=== PATIENT | female | born 1980 | race Two or more races ===

== ENCOUNTER 2024-10-05 21:02 | Emergency (ER) | payer MEDICAID, SELFPAY ==
[2024-10-05 21:02] VITALS: BP 119/73; PULSE 79; RESP 18; TEMP 36.6; O2SAT 100
[2024-10-05 21:04] VITALS: BMI 26.5
--- NOTE | 2024-10-05 21:52 | PD.EDHA ---
ED Headache RME/HPI General Chief Complaint: General Adult/Misc Complain Stated Complaint: FEEL ILL, HEADACHE Time Seen by Provider: 10/05/24 21:51 Arrival date/time: 10/05/24 21:02 RME / HPI RME / HPI Narrative: This is a case of 43 year old female came in [facility] general weakness and increased sleeping Related Data Previous Rx's ?Medication ?Instructions ?Recorded aluminum-mag hydroxide-simethicone 10 ml PO TID PRN indigestion #355 08/26/22 200 mg-200 mg-20 mg/5 mL oral susp mL (Advanced Antacid-Antigas) Allergies Allergy/AdvReac Type Severity Reaction Status Date / Time diphenhydramine (From Allergy TREMORS Verified 10/05/24 21:03 Benadryl) Course Orders Category Date Time Status CT head/brain wo con Stat Exams 10/05/24 21:51 Ordered CBC Stat Lab 10/05/24 21:51 Ordered CMP [Comprehensive Metabolic Panel] Stat Lab 10/05/24 21:51 Ordered Vital Signs Vital signs: Vital Signs Temperature 98 F 10/05/24 21:02 Pulse Rate 79 10/05/24 21:02 Respiratory Rate 18 10/05/24 21:02 Blood Pressure 119/73 10/05/24 21:02 Pulse Oximetry (%) 100 10/05/24 21:02 Oxygen Delivery Method Room Air 10/05/24 21:02 Discharge Plan Prescriptions/Referrals Prescriptions/Med Rec: No Action alum-mag hydroxide-simeth [Advanced Antacid-Antigas] 200-200-20 mg/5 mL suspension 10 ml PO TID PRN (Reason: indigestion) Qty: 355 0RF Patient/Caregiver Discharge Instructions Print Language: Panamanian
--- NOTE | 2024-10-05 21:55 | EDRME_ITS ---
Rapid Medical Screening Exam RME Arrival date/time: 10/05/24 21:02 This is a case of 43 year old female came in [facility] general weakness and increased sleeping Chief Complaint: General Adult/Misc Complain Time Seen by Provider: 10/05/24 21:51 Vital signs: Vital Signs Temperature 98 F 10/05/24 21:02 Pulse Rate 79 10/05/24 21:02 Respiratory Rate 18 10/05/24 21:02 Blood Pressure 119/73 10/05/24 21:02 Pulse Oximetry (%) 100 10/05/24 21:02 Oxygen Delivery Method Room Air 10/05/24 21:02 E Narrative: This is a case of 43 year old female came in [facility] general weakness and increased sleeping
[2024-10-05 22:10] LABS: Basophils % (Auto) 0 % (0-2.5); Eosinophils % (Auto) 0 % (0-10); Hematocrit 25.3 % (36.0-46.0); Immature Granulocytes % (Auto) 0 % (0-0); Immature Granulocytes Auto 0.01 Thou/mm3 (0.00-0.00); Lymphocytes # (Auto) 1.7 Thou/mm3 (1.0-4.8); Lymphocytes % (Auto) 24 % (10-50); Mean Corpuscular HGB Conc 29.6 g/dl (31.0-37.0); Mean Corpuscular Hemoglobin 17.7 pg (25.0-35.0); Mean Corpuscular Volume 60 fL (80-100); Monocytes # (Auto) 0.6 Thou/mm3 (0.0-0.8); Monocytes % (Auto) 9 % (0-12); Neutrophils # (Auto) 4.6 Thou/mm3 (1.8-7.7); Neutrophils % (Auto) 66 % (37-80); Nucleated Red Blood Cell % 0 /100 WBC (0); Platelet Count 313 Thou/mm3 (140-440); RDW Standard Deviation 42.5 fL (36.4-46.3); Red Blood Count 4.23 Miln/mm3 (4.00-5.20)
[2024-10-05 22:25] LABS: Hemoglobin 7.5 g/dL (12.0-16.0)
[2024-10-05 22:28] LABS: Alanine Aminotransferase 10 U/L (10-49); Albumin, Serum 4.3 gm/dL (3.5-5.0); Albumin/Globulin Ratio 1.4 (1.2-2.2); Alkaline Phosphatase 40 U/L (46-116); Anion Gap 10 (7-16); Aspartate Amino Transferase 17 U/L (0-34); BUN/Creatinine Ratio 17 Ratio (12-20); Bilirubin,Total 0.7 mg/dL (0.3-1.2); Blood Urea Nitrogen 10 mg/dL (9-23); Carbon Dioxide 23.8 mMol/L (20.0-31.0); Chloride 104 mMol/L (98-107); Creatinine (Component) 0.6 mg/dL (0.6-1.3); Estimated Creatinine Clearance 114.3 mL/min (>60); Glucose 114 mg/dL (74-106); Osmolality,Calculated 275 (275-295); Potassium 3.7 mMol/L (3.4-5.1); Sodium 138 mMol/L (136-145); Total Protein 7.3 gm/dL (5.7-8.2); eGFR > 60 See Note
[2024-10-05] MEDS: LIDOCAINE VISCOUS 2% 15 ML UDC PO (23:23)
[2024-10-05] MEDS: FAMOTIDINE 20 MG TABLET 40 MG PO (23:23)
[2024-10-05] MEDS: MG HYD/AL HYD/SIME (Maalox Reg) SUSP 30 ML UDC PO (23:23)
[2024-10-05] MEDS: ONDANSETRON ODT 4 MG TABRAP PO (23:23)
[2024-10-06 00:13] VITALS: BP 115/57; PULSE 84; RESP 18; TEMP 36.8; O2SAT 100
[2024-10-06 00:47] VITALS: BP 115/57; PULSE 66; RESP 14; TEMP 37; O2SAT 99
[2024-10-06 01:04] LABS: Path Review Blood Smear Sent to Pathologist
[2024-10-06 02:23] VITALS: BP 114/80; PULSE 67; RESP 14; TEMP 37; O2SAT 99
== END 2024-10-06 02:25 | disposition left against medical advice (07) ==
LOC: SERX 22:07
PROVIDERS: Nurse Practitioner Family; Emergency Provider Emergency Medicine; PCP Physician Assistant
DX: R53.1 Weakness (principal); Z53.29 Procedure and treatment not carried out because of patient's decision for other reasons
CPT/HCPCS: 36415; 80053; 85025; 99281; J3490; Q0162; A9270

== ENCOUNTER 2024-11-22 08:33 | Outpatient (AMB) | payer MEDICAID, SELFPAY ==
--- NOTE | 2024-11-22 08:35 | GYNCLNT_ITS ---
Vital Signs 11/22/24 08:56 Height 1.6 m Height Method Stated Weight 68.209 kg Weight Measurement Method Standing Scale BMI 26.6 BP 118/74 Blood Pressure Source Automatic Cuff Blood Pressure Location Right Upper Arm Position Sitting Respiration 18 Pulse 78 Pulse Source Monitor Temp 98.3 F Temp Source Temporal Artery Scan Pulse Oximetry (%) 99 Oxygen Delivery Method Room Air Allergies/Home Meds Allergies & Medications Allergies diphenhydramine (From Benadryl) Allergy (Verified 11/22/24 10:56) TREMORS Intake Visit Data Collection New Patient or Established: Established Patient (seen at [facility] within 3 years) Reason for Visit:: HEAVY MENSTRUAL PERIODS Seen by Clinical Staff ONLY (RN/MA): No Commercial Loan Underwriter Required: Yes Commercial Loan Underwriter's name/title: HARESH WEBB MA Do You Feel Safe at Home: Yes Authorities Contacted: N/A PCP or OBGYN visit in last 3 months: Yes Date of Last PCP or OBGYN visit: 10/06/24 Hx Now: No Are you currently on any form of Control: No Last menstrual period: 11/01/24 Pain Present Currently: No Pain Scale Used: Storm-Cash/Numerical Pain scale:: 0 Smoking Status Smoking Status: Never smoker 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 Menstrual regularity: regular Flow: heavy Monthly: Yes How many days does period last: 6 Age at menarche: 14 Currently sexually active: Yes 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 1. Little interest or pleasure in doing things: several days 2. Feeling down, depressed, or hopeless: several days Total score: 2 PHQ-9 3. Trouble falling or staying asleep, or sleeping too much: Several days 4. Feeling tired or having little energy: Several days 5. Poor appetite or overeating: Not at all 6. Feeling bad about yourself - or that you are a failure or have let yourself or your family down: Several days 7. Trouble concentrating on things, such as reading the newspaper or watching television: Not at all 8. Moving or speaking so slowly that other people could have noticed? - Or the opposite - being so fidgety or restless that you have been moving around a lot more than usual: not at all 9. Thoughts that you would be better off or of hurting yourself in some way: Not at all Total score: 5.0 If you checked off any problems, how difficult have these problems made it for you to do your work, take care of things at home, or get along with other peo ple?: somewhat difficult Source: Developed by Drs. Pa Kilgore, Reanna Dunbar, Mark Bruno and colleagues, with an educational william from [employer]. Depression screen completed yes Social History Living Situation History Marital Status: Lives With: Family Housing: House Tobacco History Smoking Status: Never smoker Second Hand Smoke Exposure: No Alcohol History Alcohol Intake: Never Domestic Abuse History Do You Feel Safe at Home: Yes History of Present Illness HPI Narrative Ashlie Reese, a patient with a history of 5 C-sections, presents for ab normal uterine bleeding. She was last seen in 2022 and has not followed up since then. The patient initially presented with pelvic pain and irregular bleeding in 2020, following a in 2018. She was prescribed combination contraceptives and then high-dose progesterone by previous providers. An ultrasound at that time showed an enlarged uterus (9.2 cm) with diffuse echogenous heterogeneity consistent with adenomyosis, a 2.6 cm leiomyoma, and a 5 cm left ovarian cyst. The patient initially requested hysteroscopy and endometrial ablation but later changed her mind and wanted to proceed with a hysterectomy. However, she was lost to follow-up for 4 years. Currently, Ashlie reports heavy menstrual bleeding lasting 5 days, with the heaviest flow occurring on the first two days. Her menstrual cycle is 26 days long, and she denies any intermenstrual bleeding. She mentions receiving iron infusions in [place] for anemia, although her recent hemoglobin level was 12 g/dL, indicating no current anemia. The patient expresses concern about scar tissue from her previous C-sections, which she believes may be affecting her organs. Ashlie is interested in treatment options to reduce her menstrual flow and is considering the possibility of surgery in the winter months (March-April). She has not had any recent ultrasounds due to being on her period during a recent medical visit in [place]. Obstetric History: - GTPAL: G5 T5 L5 - history: - in 2019 - Four previous C-sections (years not specified) Medical History: - Adenomyosis - Uterine leiomyoma (fibroid) - Left ovarian cyst Surgical History: - in 2019 - 4 additional C-sections (5 total) - Cholecystectomy - Breast reduction surgery Medications and Supplements: - Combination contraceptives - High-dose progesterone - Iron treatments (received in [place]) ROS: Genitourinary: Positive for heavy menstrual bleeding lasting 5 days, negative for intermenstrual bleeding. Diagnostic Test Results and Labs: Ultrasound (2022): - Uterus size: 11.7 cm - Endometrial stripe: 13.5 mm - Left ovarian cyst: 2.9 cm simple cyst - Ovaries: Unremarkable - No free fluid visualized Ultrasound (2020): - Left ovarian cyst: 5 cm - Uterine fibroid noted Ultrasound (2022): - Uterus size: 9.2 cm - Diffuse echogenous heterogeneity consistent with adenomyosis - Leiomyoma: 2.6 cm - Left ovarian cyst: 5 cm Pap smear (After initial evaluation, year not specified): Normal Labs (After initial evaluation, year not specified): Normal testosterone- progesterone DHA Hemoglobin (date not specified): 12 g/dL Review of Systems Review of Systems Systems Reviewed: All systems reviewed, normal except as documented Exam General General Appearance: alert, in no apparent distress and healthy appearing Head Head exam: atraumatic Neck Neck exam: Present normal inspection and trachea midline Chest Chest inspection: Present normal inspection and symmetric chest wall rise External exam: Present normal external exam; Absent tenderness Neuro Neurological exam: Present oriented X3 Psych Psychiatric exam: Present normal affect and normal mood Office Procedures OB Clinic LOC & Office Proc's Nursing/Assessment Patient Status: Established Patient OB Clinic Nursing Assessment: Medication Reconciliation, Update PMH in EMR and Vital Signs OB Clinic Coordination of Care: Complex Care and Chronic Disease 1-5, Consent,records obtained, informed consent, Education Simp Pt/Fam, Lab and Imaging orders and Staff clarify orders Established Patient Charge Established Patient Point Assignment: 100 Established Patient Point Charge: EP Level 3 (80-115) Assessment & Plan Diagnosis / Problem List (1) Abnormal uterine and vaginal bleeding, unspecified: Status: Acute Plan Abnormal Uterine Bleeding Assessment: - Heavy menstrual bleeding lasting 5 days, occurring every 26 days - Previous ultrasounds showed enlarged uterus (11.7 cm in 2022) - Features consistent with adenomyosis - 2.6 cm leiomyoma noted in previous ultrasound, not visualized in most recent - Endometrial stripe 13.5 mm - History of 5 C-sections - Previous treatments: combination contraceptives and high-dose progesterone Plan: - Order pelvic ultrasound to reassess uterine size, fibroids, and endometrial thickness - Order blood tests to evaluate overall health status - Prescribe iron and folic acid supplement - Discuss treatment options based on ultrasound and blood test results - Consider medical management to reduce menstrual bleeding - Schedule follow-up appointment in one month to review results and discuss treatment plan - Patient prefers to consider surgical options (if needed) in March-April History of Ovarian Cysts Assessment: - Previous ultrasound showed 5 cm left ovarian cyst - Most recent ultrasound (2022) showed 2.9 cm simple left ovarian cyst - Both ovaries otherwise unremarkable Plan: - Reassess ovarian cysts with upcoming pelvic ultrasound - Discuss findings and management options at follow-up appointment Additional Plan Follow Up: 4 Weeks
[2024-11-22 08:56] VITALS: BP 118/74; PULSE 78; RESP 18; TEMP 36.8; O2SAT 99; BMI 26.6
== END 2024-11-22 09:17 | disposition home or self-care (01) ==
LOC: HODSOBC 08:33
PROVIDERS: PCP Physician Assistant; Referring Provider Physician Assistant; Supervising Provider Obstetrics & Gynecology; Visit Provider Obstetrics & Gynecology
DX: N93.9 Abnormal uterine and vaginal bleeding, unspecified (principal); Z87.42 Personal history of other diseases of the female genital tract; Z90.49 Acquired absence of other specified parts of digestive tract
CPT/HCPCS: 99213; G0463

== ENCOUNTER → 2024-12-08 | Outpatient (CLI) | payer MEDICAID, SELFPAY ==
--- NOTE | 2024-12-08 13:30 | XR_ITS ---
Examination: Transvaginal ultrasound of the pelvis, complete Technique: Transvaginal sonographic images pelvis performed using pardo scale imaging Exam date and time: December 08, 2024 1325 hours INDICATIONS: Irregular heavy menses for years FINDINGS: Uterus 10.3 cm anterior uterine area of fibroid degeneration 35 x 35 mm and posterior uterine body area of fibroid degeneration 15 x 15 mm Endometrial stripe 16mm Right ovary 2.9 cm arterial flow Left ovary 3.5 cm arterial flow 15 mm follicular cyst IMPRESSION: Uterine areas of fibroid degeneration, consider 6 month follow-up transvaginal pelvic sonography.
--- NOTE | 2024-12-08 13:30 | XR_ITS ---
Examination: Pelvic ultrasound, transabdominal, complete Technique: Transabdominal ultrasound of the pelvis performed using grayscale imaging Date and time of exam: December 08, 2024 at 1318 hours INDICATIONS: Irregular heavy menses beginning 4 years ago FINDINGS: Uterus 10.6 cm endometrial stripe 1.0 cm No uterine mass or intrauterine gestation Right ovary 2.0 cm arterial flow Left ovary 3.4 cm arterial flow 14 mm follicular cyst IMPRESSION: No uterine mass or intrauterine gestation, please see the transvaginal pelvic sonography report to follow
== END | disposition home or self-care (01) ==
LOC: CDIM 13:01
PROVIDERS: PCP Physician Assistant; Referring Provider Obstetrics & Gynecology; Visit Provider Obstetrics & Gynecology
DX: D25.9 Leiomyoma of uterus, unspecified (principal)
CPT/HCPCS: 76830; 76856

== ENCOUNTER 2024-12-21 10:43 | Outpatient (AMB) | payer MEDICAID, SELFPAY ==
[2024-12-21 11:18] VITALS: BP 123/79; PULSE 83; RESP 17; TEMP 37.1; O2SAT 98; BMI 26.8
--- NOTE | 2024-12-21 11:18 | GYNCLNT_ITS ---
Vital Signs 12/21/24 11:18 Height 1.6 m Height Method Measured Weight 68.663 kg Weight Measurement Method Standing Scale BMI 26.8 BP 123/79 Blood Pressure Source Automatic Cuff Blood Pressure Location Right Upper Arm Position Sitting Respiration 17 Pulse 83 Pulse Source Monitor Temp 98.8 F Temp Source Temporal Artery Scan Pulse Oximetry (%) 98 Oxygen Delivery Method Room Air Allergies/Home Meds Allergies & Medications Allergies diphenhydramine (From Benadryl) Allergy (Verified 01/21/25 12:44) TREMORS Medication Reconciliation vits no.126-ferrous fum 28 mg iron-folic acid 800 mcg tablet (Classic ) 1 tab PO QDAY 90 days #90 tabs 11/23/24 [Rx Confirmed 12/21/24] albuterol sulfate 90 mcg/actuation breath activated powder inhaler 2 inh inhalation Q4H PRN shortness of breath #1 ea 01/10/25 [Rx] lorazepam 0.5 mg tablet (Ativan) 0.5 mg PO BID PRN anxiety #20 tabs 01/21/25 [Rx] Intake Visit Data Collection New Patient or Established: Established Patient (seen at [facility] within 3 years) Reason for Visit:: F\U LAB RESULTS & ULTRASOUND Consent obtained for Telemed Visit: No Seen by Clinical Staff ONLY (RN/MA): No Delinquency Counselor Required: Yes Delinquency Counselor's name/title: ASTER JAVIER Do You Feel Safe at Home: Yes Authorities Contacted: N/A PCP or OBGYN visit in last 3 months: Yes Date of Last PCP or OBGYN visit: 11/22/24 Hx Now: No Are you currently on any form of Control: No Last menstrual period: 11/26/24 Pain Present Currently: No Pain Scale Used: Storm-Csah/Numerical Pain scale:: 0 Smoking Status Smoking Status: Never smoker 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 1. Little interest or pleasure in doing things: several days PHQ-9 8. Moving or speaking so slowly that other people could have noticed? - Or the opposite - being so fidgety or restless that you have been moving around a lot more than usual: not at all Source: Developed by Drs. Pa Kilgore, Reanna Dunbar, Mark Bruno and colleagues, with an educational william from [employer]. Social History Living Situation History Lives With: Family Housing: House Tobacco History Smoking Status: Never smoker Second Hand Smoke Exposure: No Alcohol History Alcohol Intake: Never Domestic Abuse History Do You Feel Safe at Home: Yes History of Present Illness HPI Narrative Patient reports taking vitamins, which she believes have helped alleviate her symptoms. She denies experiencing heavy periods at present. The patient's last Pap smear was performed 3 years ago at outside clinic and was rep orted as normal. She is approaching menopausal age but does not report any specific menopausal symptoms. She is a female patient with a history of 5 C-sections, presenting for follow-up of abnormally transmitted disease, uterine leiomyoma, and ovarian cyst. She was previously evaluated for abnormal uterine bleeding (AUB) and uterine leiomyoma. Her obstetric history includes GTPAL: G5 T5 L5, with a history of 5 C- sections. Medical history includes abnormally transmitted disease, leiomyoma of uterus, left ovarian cyst (previously 5 cm), and anemia (currently resolved). Surgical history includes 5 C-sections and D&E (Dilation and Evacuation). Currently taking vitamins as medication. Diagnostic Test Results and Labs: - Pelvic ultrasound (12/08/2024): Uterus 10.6 cm, endometrial stripe 1 cm. No uterine mass or intrauterine gestation. Right ovary 2 cm with arterial flow. Left ovary 3.4 cm with 14 mm follicular cyst. - Transvaginal ultrasound (date not specified): Fibroid degeneration 35 x 35 mm in posterior uterine body. Fibroid 15 x 15 mm in posterior uterine body. - Labs (11/24/2024): - A1c: 4.5 - LH: 5.1 - FSH: 3.0 - CMP: Within normal limits - Hemoglobin: 13.0 g/dL Exam General General Appearance: alert, in no apparent distress and healthy appearing Head Head exam: atraumatic Neck Neck exam: Present normal inspection and trachea midline Chest Chest inspection: Present normal inspection and symmetric chest wall rise External exam: Present normal external exam; Absent tenderness Neuro Neurological exam: Present oriented X3 Psych Psychiatric exam: Present normal affect and normal mood Assessment & Plan Diagnosis / Problem List (1) Abnormal uterine and vaginal bleeding, unspecified: Status: Acute (2) Intramural leiomyoma of uterus: Status: Acute (3) Left ovarian cyst: Status: Acute Plan Leiomyoma of uterus: - Transpaginal ultrasound revealed: ? Area of fibroid degeneration measuring 35 x 35 mm in posterior uterine body. ? 15 x 15 mm fibroid. - Leiomyoma appears to be shrinking and not growing. - Surgical intervention considered high risk due to history of 5 C-sections. Plan: - Continue conservative management due to high surgical risk. - Monitor fibroid size with follow-up ultrasounds. - Avoid surgery if possible due to history of multiple C-sections. - Follow up in 6 months. Abnormal uterine bleeding: - Recent hemoglobin level is 13.0. - Endometrial stripe measures 13.5 mm on ultrasound. - Patient reports taking vitamins, which she believes has helped with symptoms. Plan: - Continue vitamins as tolerated. - Monitor for recurrence of heavy periods. - Consider medical management if heavy bleeding recurs. - Avoid surgical intervention if possible due to history of multiple C-sections. Ovarian cyst: - Recent pelvic ultrasound (12/08/2024) shows: ? 14 mm follicular cyst on left ovary. ? Right ovary measures 2 cm with arterial flow. ? Left ovary measures 3.4 cm. Plan: - No specific intervention required for small follicular cyst. - Continue monitoring with future imaging studies.
== END 2024-12-21 11:32 | disposition home or self-care (01) ==
LOC: HODSOBC 10:43
PROVIDERS: Supervising Provider Obstetrics & Gynecology; Visit Provider Obstetrics & Gynecology
DX: D25.1 Intramural leiomyoma of uterus (principal); N83.202 Unspecified ovarian cyst, left side; N93.9 Abnormal uterine and vaginal bleeding, unspecified; Z88.8 Allergy status to other drugs, medicaments and biological substances
CPT/HCPCS: 99213; G0463

== ENCOUNTER 2024-12-30 08:18 | Emergency (ER) | payer MEDICAID, SELFPAY ==
--- NOTE | 2024-12-30 08:24 | EKG_ITS ---
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
[2024-12-30 08:26] VITALS: BP 114/75; PULSE 94; RESP 18; TEMP 37.1; O2SAT 99; BMI 26.5
--- NOTE | 2024-12-30 08:38 | XR_ITS ---
Examination: PA lateral chest 2 views TECHNIQUE: Upright PA lateral chest 2 views Date and time: December 30, 2024 0907 hours INDICATIONS: Chest pain left arm numbness beginning 4 days ago. FINDINGS: Normal heart size. Lungs are clear. The osseous structures are intact IMPRESSION: No active disease
--- NOTE | 2024-12-30 08:39 | PD.EDRME ---
Rapid Medical Screening Exam RME Arrival date/time: 12/30/24 08:18 44-year-old female presents stating she recently had endovenous ablation of lower extremities patient reports left arm pain, numbness and chest pressure Chief Complaint: Extremity Problem,Nontraumatic Vital signs: Vital Signs Temperature 98.7 F 12/30/24 08:26 Pulse Rate 94 12/30/24 08:26 Respiratory Rate 18 12/30/24 08:26 Blood Pressure 114/75 12/30/24 08:26 Pulse Oximetry (%) 99 12/30/24 08:26 Oxygen Delivery Method Room Air 12/30/24 08:26
[2024-12-30 09:44] LABS: Basophils # (Auto) 0.0 Thou/mm3 (0.0-0.2); Basophils % (Auto) 0 % (0-2.5); Eosinophils # (Auto) 0.0 Thou/mm3 (0.0-0.5); Eosinophils % (Auto) 0 % (0-10); Hematocrit 42.6 % (36.0-46.0); Hemoglobin 14.0 g/dL (12.0-16.0); Immature Granulocytes Auto 0.03 Thou/mm3 (0.00-0.00); Lymphocytes # (Auto) 1.4 Thou/mm3 (1.0-4.8); Lymphocytes % (Auto) 20 % (10-50); Mean Corpuscular HGB Conc 32.9 g/dl (31.0-37.0); Mean Corpuscular Hemoglobin 28.8 pg (25.0-35.0); Mean Corpuscular Volume 88 fL (80-100); Monocytes # (Auto) 0.4 Thou/mm3 (0.0-0.8); Monocytes % (Auto) 6 % (0-12); Neutrophils # (Auto) 5.3 Thou/mm3 (1.8-7.7); Neutrophils % (Auto) 74 % (37-80); Nucleated Red Blood Cell # 0.00 Thou/mm3 (0.00-0.00); Nucleated Red Blood Cell % 0 /100 WBC (0); Platelet Count 207 Thou/mm3 (140-440); RDW Standard Deviation 39.4 fL (36.4-46.3); Red Blood Count 4.86 Miln/mm3 (4.00-5.20); White Blood Count 7.2 Thou/mm3 (3.6-11.0)
[2024-12-30 10:04] LABS: Alanine Aminotransferase 16 U/L (10-49); Albumin, Serum 4.8 gm/dL (3.5-5.0); Albumin/Globulin Ratio 1.8 (1.2-2.2); Alkaline Phosphatase 48 U/L (46-116); Anion Gap 11 (7-16); Aspartate Amino Transferase 18 U/L (0-34); BUN/Creatinine Ratio 12 Ratio (12-20); Bilirubin,Total 1.0 mg/dL (0.3-1.2); Blood Urea Nitrogen 7 mg/dL (9-23); Calcium 10.0 mg/dL (8.3-10.6); Calcium (Corrected) 10.0 mg/dL (8.5-10.1); Carbon Dioxide 26.2 mMol/L (20.0-31.0); Chloride 104 mMol/L (98-107); Creatinine (Component) 0.6 mg/dL (0.6-1.3); Estimated Creatinine Clearance 113.1 mL/min (>60); Globulin 2.7 gm/dL (2.3-3.5); Glucose 106 mg/dL (74-106); Osmolality,Calculated 279 (275-295); Potassium 3.8 mMol/L (3.4-5.1); Sodium 141 mMol/L (136-145); Total Protein 7.5 gm/dL (5.7-8.2); Troponin I < 0.002 ng/mL (0.0-0.045); eGFR > 60 See Note
[2024-12-30 10:10] VITALS: BP 124/72; PULSE 77; RESP 14; O2SAT 100
[2024-12-30 10:12] LABS: HCG,Qualitative Serum Negative
[2024-12-30 10:21] LABS: D-Dimer < 250 ng/mL (<600)
--- NOTE | 2024-12-30 10:31 | XR_ITS ---
Examination: CT cervical spine without contrast 2-D sagittal reconstructions 2-D coronal reconstructions 3-D reconstructions. Exam date and time:December 30, 2024 1106 hours INDICATIONS: Neck pain radiating to the left arm beginning 4 days ago CTDI:vol (mGy) 13.3 DLP: (mGycm) 271 Technique: Multiple 2 mm axial sections of the cervical spine have been obtained. The coronal and sagittal reconstructions have been obtained. 3-D reconstructions have been obtained. Low dose protocols were performed. One or more of the following dose reduction techniques were used; automated exposure control, adjustment of the mA and/or KV according to patient size, use of iterative reconstruction technique. Findings: Axial sections demonstrate intact base of the skull. C1 exhibit satisfactory relationship to the odontoid. No acute cervical vertebral body fracture seen. Alignment posterior spinous processes satisfactory. Impression: No acute cervical fracture. If symptoms persist, consider MRI cervical spine without contrast follow-up
--- NOTE | 2024-12-30 10:39 | PD.EDADULT ---
ED General RME/HPI General Chief complaint: Extremity Problem,Nontraumatic Stated complaint: Left arm numbness, anxious Arrival date/time: 12/30/24 08:18 RME / HPI RME / HPI narrative: 12/30/24 08:18 44-year-old female presents stating she recently had endovenous ablation of lower extremities patient reports left arm pain, numbness and chest pressure DR. EDWARDS MAIN ED EVALUATION: 44-year-old female with past medical history of anxiety presents to the Emergency Department accompanied by her for evaluation of left upper extremity numbness and tingling that began Friday night. Symptoms involve primarily left arm and some fingers of the right hand. Patient notes that she had carried two chairs in that left arm earlier that day. She also reports chest pressure without chest pain and describes a heavy and tired sensation in the back of her neck for the past week. She denies shortness of breath, abdominal pain, nausea, vomiting, or diaphoresis. Related Data Previous Rx's ?Medication ?Instructions ?Recorded vits no.126-ferrous fum 1 tab PO QDAY 90 days #90 tabs 11/23/24 28 mg iron-folic acid 800 mcg tablet (Classic ) Allergies Allergy/AdvReac Type Severity Reaction Status Date / Time diphenhydramine (From Allergy TREMORS Verified 12/30/24 08:24 Benadryl) Review of Systems Review of Systems Systems Reviewed: All systems reviewed, normal except as documented Past Medical History Past Medical History GASTROINTESTINAL: Positive Gastrointestinal Disorders, Gall Bladder Disease and Gastroesophageal Reflux Disease REPRODUCTIVE: Positive Previous Pregnancies OTHER HISTORY: Positive Hospitalization and Chicken Pox Surgical History SURGICAL: Positive Section Social History SMOKING STATUS: Never smoker SECOND HAND EXPOSURE: No SUBSTANCE USE: does not use ED Exam Narrative Physical exam: Constitutional: Awake, alert, nontoxic, no acute distress HEENT: NC, AT, EOMI Neck: Supple CV: RRR, no m/r/g Lungs: CTAB, no w/r/r, no respiratory distress. Abd: Soft, NT, NT, no HSM noted to palpation Extremities: No deformities, no edema noted Neuro: AAOx3, CN 2-12 GIBL, no acute neuro deficit noted. FROM of all 4 extremities with symmetrical strength. 5/5. Skin: Warm, dry, intact Course Course Course Narrative: 1050: Reviewed available results which showed no acute abnormalities. Given the patient?s presentation with persistent neck pain and left upper extremity symptoms, also her paraesthesias, will proceed with CT of the neck for further evaluation. 1330H: Results of scan reviewed. No acute process. Patient vitally stable. Recent labs are generally unremarkable. Okay for discharge home. Advised on outpatient follow-up with PCP for further. Return precautions advised. Quality Measures none Orders Category Date Time Status EKG (ED ONLY) *Do not use* NOW Care 12/30/24 08:[address] cervical spine wo con Stat Exams 12/30/24 10:31 Completed EKG (ED Only) Stat Exams 12/30/24 08:24 Draft XR chest 2V Stat Exams 12/30/24 08:38 Completed CBC Stat Lab 12/30/24 09:15 Completed Comprehensive Metabolic Panel Stat Lab 12/30/24 09:15 Completed D-Dimer Stat Lab 12/30/24 09:15 Completed HCG,Qualitative Serum Stat Lab 12/30/24 09:15 Completed Troponin I Stat Lab 12/30/24 09:15 Completed Vital Signs Vital signs: Vital Signs Temperature 98.7 F 12/30/24 08:26 Pulse Rate 94 12/30/24 08:26 Respiratory Rate 18 12/30/24 08:26 Blood Pressure 114/75 12/30/24 08:26 Pulse Oximetry (%) 99 12/30/24 08:26 Oxygen Delivery Method Room Air 12/30/24 08:26 Discharge Plan Plan Patient Disposition: HOME (Self Care) Patient condition on transfer: Stable Prescriptions/Referrals Prescriptions/Med Rec: No Action Classic 28 mg iron- 800 mcg tablet 1 tab PO QDAY 90 Days Qty: 90 4RF Referrals: Sree Hdz PA-C [Primary Care Provider] - In 1 week Problem List Clinical Impression: Complaint of paresthesia Patient/Caregiver Discharge Instructions Education Materials: ED Paraesthesias Print Language: Greenlandic Stand Alone Forms: Karly Award Info., Patient Portal Info Letter MDM Narrative [facility] hospital course: Faustina Kang, am scribing for and in the presence of Dr. Edwards. Clinical Information Provided by patient and spouse Medical Records Reviewed [facility] Meds/Rx Considered, not Ordered None Labs/Rad/Tests considered, not Ordered None Chronic Illness/Social Conditions Add or document further as needed: anxiety EKG EKG Interpretation narrative: My interpretation: EKG performed at 0829 hours, sinus rhythm, rate 78, no STEMI Lab Interpretation Labs: see narrative above Imaging Radiology reports / interpretation(s): Procedure(s): XR chest 2V Accession Number(s): [id number] cc: Krista VEGAS),Sree WORTHINGTON; Sree Hdz PA-C; Inderjit Slaughter MD~ Examination: PA lateral chest 2 views TECHNIQUE: Upright PA lateral chest 2 views Date and time: December 30, 2024 0907 hours INDICATIONS: Chest pain left arm numbness beginning 4 days ago. FINDINGS: Normal heart size. Lungs are clear. The osseous structures are intact IMPRESSION: No active disease Dictated By: Inderjit Slaughter MD Procedure(s): CT cervical spine wo con Accession Number(s): [id number] cc: Sree Hdz PA-C; Inderjit Slaughter MD; Solange Edwards MD~ Examination: CT cervical spine without contrast 2-D sagittal reconstructions 2-D coronal reconstructions 3-D reconstructions. Exam date and time:December 30, 2024 1106 hours INDICATIONS: Neck pain radiating to the left arm beginning 4 days ago CTDI:vol (mGy) 13.3 DLP: (mGycm) 271 Technique: Multiple 2 mm axial sections of the cervical spine have been obtained. The coronal and sagittal reconstructions have been obtained. 3-D reconstructions have been obtained. Low dose protocols were performed. One or more of the following dose reduction techniques were used; automated exposure control, adjustment of the mA and/or KV according to patient size, use of iterative reconstruction technique. Findings: Axial sections demonstrate intact base of the skull. C1 exhibit satisfactory relationship to the odontoid. No acute cervical vertebral body fracture seen. Alignment posterior spinous processes satisfactory. Impression: No acute cervical fracture. If symptoms persist, consider MRI cervical spine without contrast follow-up Dictated By: Inderjit Slaughter MD Diagnosis Differential diagnosis: cervical radiculopathy, anxiety-related symptoms, acute coronary syndrome Most likely dx, and/or detailed dx discussion: ED paraesthesias Dispositon Disposition: Discharge Home
[2024-12-30 12:43] VITALS: BP 108/69; PULSE 77; RESP 15; TEMP 37.1; O2SAT 99
[2024-12-30 13:48] VITALS: BP 115/69; PULSE 66; RESP 18; TEMP 36.8; O2SAT 99
== END 2024-12-30 13:49 | disposition home or self-care (01) ==
PROVIDERS: Nurse Practitioner Primary Care; Emergency Provider Family Medicine; PCP Physician Assistant
DX: R20.2 Paresthesia of skin (principal); M79.602 Pain in left arm; R07.89 Other chest pain; M54.2 Cervicalgia
CPT/HCPCS: 36415; 71046; 72125; 80053; 84484; 84703; 85025; 85379; 93005; 99283

== ENCOUNTER 2025-01-10 00:24 | Emergency (ER) | payer MEDICAID, SELFPAY ==
[2025-01-10 00:25] VITALS: BMI 26.2
[2025-01-10 00:47] VITALS: BP 115/70; PULSE 86; RESP 24; TEMP 37; O2SAT 99
--- NOTE | 2025-01-10 00:51 | EKG_ITS ---
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
--- NOTE | 2025-01-10 00:51 | XR_ITS ---
Examination: PA chest single view TECHNIQUE: Upright PA chest single view Date and time: January 10, 2025, 0050 hours, comparison December 30, 2024 INDICATIONS: Onset shortness of breath today FINDINGS: Normal heart size. Lungs are clear. The osseous structures are intact. IMPRESSION: No active disease.
[2025-01-10 01:15] LABS: Basophils # (Auto) 0.0 Thou/mm3 (0.0-0.2); Basophils % (Auto) 0 % (0-2.5); Eosinophils # (Auto) 0.1 Thou/mm3 (0.0-0.5); Eosinophils % (Auto) 1 % (0-10); Hematocrit 40.1 % (36.0-46.0); Hemoglobin 13.3 g/dL (12.0-16.0); Immature Granulocytes Auto 0.04 Thou/mm3 (0.00-0.00); Lymphocytes # (Auto) 3.7 Thou/mm3 (1.0-4.8); Lymphocytes % (Auto) 35 % (10-50); Mean Corpuscular HGB Conc 33.2 g/dl (31.0-37.0); Mean Corpuscular Hemoglobin 28.9 pg (25.0-35.0); Mean Corpuscular Volume 87 fL (80-100); Monocytes # (Auto) 0.9 Thou/mm3 (0.0-0.8); Monocytes % (Auto) 9 % (0-12); Neutrophils # (Auto) 5.8 Thou/mm3 (1.8-7.7); Neutrophils % (Auto) 55 % (37-80); Nucleated Red Blood Cell # 0.00 Thou/mm3 (0.00-0.00); Nucleated Red Blood Cell % 0 /100 WBC (0); Platelet Count 174 Thou/mm3 (140-440); RDW Standard Deviation 38.5 fL (36.4-46.3); Red Blood Count 4.61 Miln/mm3 (4.00-5.20); White Blood Count 10.5 Thou/mm3 (3.6-11.0)
--- NOTE | 2025-01-10 01:22 | PD.EDRME ---
Rapid Medical Screening Exam RME Arrival date/time: 01/10/25 00:24 This is a case of a 44-year-old female with history of anxiety came in in the emergency room due to shortness of breath generalized numbness and chest pain persistence of the symptoms thus patient decided to sought consult here in the emergency room Chief Complaint: Shortness of Breath/Dyspnea Time Seen by Provider: 01/10/25 00:50 Vital signs: Vital Signs Temperature 98.6 F 01/10/25 00:47 Pulse Rate 86 01/10/25 00:47 Respiratory Rate 24 H 01/10/25 00:47 Blood Pressure 115/70 01/10/25 00:47 Pulse Oximetry (%) 99 01/10/25 00:47 Oxygen Delivery Method Room Air 01/10/25 00:47
[2025-01-10 01:50] LABS: HCG,Qualitative Serum Negative
[2025-01-10 01:59] LABS: B-Type Natriuretic Peptide < 20 pg/mL (0-100)
--- NOTE | 2025-01-10 02:10 | PD.EDSOB ---
ED SOB =RME/HPI General Chief Complaint: Shortness of Breath/Dyspnea Stated Complaint: SOB, ANXIETY Time Seen by Provider: 01/10/25 00:50 Arrival date/time: 01/10/25 00:24 RME / HPI RME / HPI Narrative: 01/10/25 00:24 This is a case of a 44-year-old female with history of anxiety came in in the emergency room due to shortness of breath generalized numbness and chest pain persistence of the symptoms thus patient decided to sought consult here in the emergency room Dr. Lilly?s Main ED Evaluation: 44yo female with a history of anxiety presents to the ED for a chief complaint of shortness of breath x 1 month. Patient states she was sleeping tonight and woke up feeling like she couldn't breathe, so she came in for evaluation. Patient denies any fever, chills, cough, chest pain or any other associated symptoms. She denies any history of DM or HTN. Related Data Previous Rx's ?Medication ?Instructions ?Recorded vits no.126-ferrous fum 1 tab PO QDAY 90 days #90 tabs 11/23/24 28 mg iron-folic acid 800 mcg tablet (Classic ) albuterol sulfate 90 mcg/actuation 2 inh inhalation Q4H PRN shortness 01/10/25 breath activated powder inhaler of breath #1 ea Allergies Allergy/AdvReac Type Severity Reaction Status Date / Time diphenhydramine (From Allergy TREMORS Verified 01/10/25 00:25 Benadryl) Review of Systems Review of Systems Systems Reviewed: All systems reviewed, normal except as documented Past Medical History Past Medical History NEUROLOGIC: Negative Neurological Disorders or Seizures CARDIAC: Negative Cardiac Disorders or Congestive Heart Failure RESPIRATORY: Negative Chronic Obstructive Pulmonary Disease (COPD) GASTROINTESTINAL: Positive Gastrointestinal Disorders, Gall Bladder Disease and Gastroesophageal Reflux Disease; Negative Hepatitis or Colorectal Cancer GENITOURINARY: Negative Genitourinary Disorders, Renal Disease or Prostate Cancer REPRODUCTIVE: Positive Previous Pregnancies; Negative Breast Cancer, Endometriosis, Genital Herpes, Gonorrhea, Pelvic Inflammatory Disease, Syphilis, Testicular Cancer or Uterine Prolapse MUSCULOSKELETAL: Negative Musculoskeletal Disorders or Bone Cancer ENDOCRINE: Negative Endocrine Disorders, Diabetes Mellitus Type 1 or Diabetes Mellitus Type 2 HEMATOLOGIC: Negative Blood Disorders OTHER HISTORY: Positive Hospitalization and Chicken Pox; Negative Autoimmune Disease, Down Syndrome, Developmental Delay, Shingles, Blood Transfusions, Blood Transfusion Reaction, Anesthesia Reactions, Organ Transplant, Chemotherapy, Radiation Therapy, Hyperbaric Therapy, MRSA, VRSA, Vancomycin-Resistant Enterococci, Human Immunodeficiency Virus (HIV), Measles, Mumps, Rubella (Kazakh Measles), Pertussis, Clostridium Difficile, Cancer, Breast Cancer, Cervical Cancer, Colorectal Cancer, Lung Cancer, Ovarian Cancer, Prostate Cancer or Testicular Cancer Family History FAMILY HISTORY: Negative Family Psychiatric Problems, Family Respiratory Disorders, Family Cardiac Disorders, Family Gastrointestinal Problems, Family Cancer, Family Surgery or Family Anesthesia Reaction Surgical History SURGICAL: Positive Section; Negative Organ Transplant Social History SMOKING STATUS: Never smoker SECOND HAND EXPOSURE: No SUBSTANCE USE: does not use ED Exam Narrative Physical exam: Generally patient is very anxious, heart regular rate and rhythm, lungs clear to auscultation equal bilaterally, abdomen soft bowel sounds present nondistended nontender, extremities show no swelling, neurologic exam patient is anxious without focal motor deficits with Guerita Coma Scale of 15 Course Course Course Narrative: CXR is ordered for determining the etiology of shortness of breath. Quality Measures none Orders Category Date Time Status EKG (ED ONLY) *Do not use* NOW Care 01/10/25 00:51 Completed EKG (ED Only) Stat Exams 01/10/25 00:51 Draft XR chest 1V portable Stat Exams 01/10/25 00:51 Taken BNP [B-Type Natriuretic Peptide] Stat Lab 01/10/25 01:04 Completed CBC Stat Lab 01/10/25 01:04 Completed CMP [Comprehensive Metabolic Panel] Stat Lab 01/10/25 01:04 Completed HCG,Qualitative Serum Stat Lab 01/10/25 01:04 Completed Troponin I Stat Lab 01/10/25 01:04 Completed LORazepam [Ativan] Med 01/10/25 02:15 Discontinued 1 mg PO X1 ONE Vital Signs Vital signs: Vital Signs Temperature 98.6 F 01/10/25 00:47 Pulse Rate 86 01/10/25 00:47 Respiratory Rate 24 H 01/10/25 00:47 Blood Pressure 115/70 01/10/25 00:47 Pulse Oximetry (%) 99 01/10/25 00:47 Oxygen Delivery Method Room Air 01/10/25 00:47 Shortness of Breath / Dyspnea MDM Narrative MDM Narrative:: Scribe Attestation: 01/10/25 - I, Eleonora Kareem, am scribing for and in the presence of Dr. Lilly. I interpreted all labs. There is no significant abnormality. Chest x-ray is normal EKG showed normal sinus rhythm at a rate of 74 without ischemic change or ectopy. Patient received Ativan 1 mg p.o. with benefit. Patient be discharged in stable condition to follow-up with a regular doctor and to return to the emergency room as needed or if condition worsens. Patient data External records reviewed:: [facility] previous records (Per chart review, patient was seen here on 12/30/24 for paresthesia.) Clinical information provided by:: patient Social determinants that could affect healthcare access:: mental health Patient has the following chronic illnesses:: anxiety How is presenting disease/condition affected by chronic disease/condition?: caused by Evaluation data The following diagnostics were reviewed and interpreted by me:: lab results, radiology exam(s) and EKG tracing(s) Lab and/or radiology exams considered but not ordered:: none Interpretation Summary: See MDM. Medications / Prescriptions Medications or Prescriptions considered but not ordered:: none Medication administrations:: Medication Administration History Discontinued Medications Lorazepam (Lorazepam 0.5 Mg Tablet) 1 mg PO X1 ONE Stop: 01/10/25 02:16 Last Admin: 01/10/25 02:25 Dose: 1 mg Documented By: WO see above, if any Consultations Consultation(s) initiated? (list below): No Diagnosis Shortness of Breath Differential Diagnosis: other (anxiety, panic attack, stress reaction) Most likely diagnosis given after review of the tests above:: see clinical impression below Admission Indicated Admission indicated?: not indicated Explain why admission is indicated or not indicated:: With significant improvement and no condition needing emergent intervention, there was no indication for admission. Admission Request Was there a request for admission?: No Disposition Plan Disposition Plan: Discharge Discharge Attestation Discharge Attestation: The patient and all family members were given an opportunity to ask questions and understood the discharge instructions. Discharge instructions specifically effects, indications for sooner follow up or return to the emergency department, and the expected course of current diagnosis. Patient condition: Stable Discharge Plan Plan Patient Disposition: HOME (Self Care) Prescriptions/Referrals Prescriptions/Med Rec: New albuterol sulfate 90 mcg/actuation aerosol powdr breath activated 2 inh inhalation Q4H PRN (Reason: shortness of breath) Qty: 1 0RF No Action Classic 28 mg iron- 800 mcg tablet 1 tab PO QDAY 90 Days Qty: 90 4RF Referrals: No Primary/Family,Physician [Primary Care Provider] - In 1 week Problem List Clinical Impression: Acute anxiety Patient/Caregiver Discharge Instructions Education Materials: ED Anxiety Reaction Additional Instructions: Inhaler as prescribed. Continue current medications. Follow-up with your doctor for further treatment and evaluation. Print Language: Belarusian Stand Alone Forms: Karly Award Info., Patient Portal Info Letter
[2025-01-10 02:11] LABS: Alanine Aminotransferase 9 U/L (10-49); Albumin, Serum 4.4 gm/dL (3.5-5.0); Albumin/Globulin Ratio 1.8 (1.2-2.2); Alkaline Phosphatase 40 U/L (46-116); Anion Gap 13 (7-16); Aspartate Amino Transferase 12 U/L (0-34); BUN/Creatinine Ratio 19 Ratio (12-20); Bilirubin,Total 0.6 mg/dL (0.3-1.2); Blood Urea Nitrogen 13 mg/dL (9-23); Calcium 10.1 mg/dL (8.3-10.6); Calcium (Corrected) 10.1 mg/dL (8.5-10.1); Carbon Dioxide 20.8 mMol/L (20.0-31.0); Chloride 106 mMol/L (98-107); Creatinine (Component) 0.7 mg/dL (0.6-1.3); Estimated Creatinine Clearance 96.3 mL/min (>60); Globulin 2.5 gm/dL (2.3-3.5); Glucose 121 mg/dL (74-106); Osmolality,Calculated 280 (275-295); Potassium 3.4 mMol/L (3.4-5.1); Sodium 140 mMol/L (136-145); Total Protein 6.9 gm/dL (5.7-8.2); Troponin I < 0.002 ng/mL (0.0-0.045); eGFR > 60 See Note
[2025-01-10 02:25] VITALS: BP 114/61; PULSE 69; RESP 23; TEMP 37.1; O2SAT 98
[2025-01-10 02:57] VITALS: BP 114/61; PULSE 66; RESP 17; TEMP 36.8; O2SAT 96
== END 2025-01-10 03:04 | disposition home or self-care (01) ==
PROVIDERS: Nurse Practitioner Family; Emergency Provider Emergency Medicine
DX: F41.9 Anxiety disorder, unspecified (principal); R06.02 Shortness of breath
CPT/HCPCS: 36415; 71045; 80053; 83880; 84484; 84703; 85025; 93005; 99283; A9270

== ENCOUNTER 2025-01-21 12:41 | Emergency (ER) | payer MEDICAID, SELFPAY ==
[2025-01-21 12:51] VITALS: BP 120/82; PULSE 73; RESP 18; TEMP 36.9; O2SAT 99; BMI 23.9
--- NOTE | 2025-01-21 12:56 | PD.EDCHEST ---
ED Chest Pain RME/HPI General Chief Complaint: Shortness of Breath/Dyspnea Stated Complaint: ANXIETY, SHORTNESS OF BREATH SINCE THIS AM Time Seen by Provider: 01/21/25 12:52 Source: patient Arrival date/time: 01/21/25 12:41 44-year-old female with a history of anxiety presents to the emergency room with a chief complaint of shortness of breath and palpitations x 1 day Mode of arrival: ambulatory Limitations: no limitations Related Data Previous Rx's ?Medication ?Instructions ?Recorded vits no.126-ferrous fum 1 tab PO QDAY 90 days #90 tabs 11/23/24 28 mg iron-folic acid 800 mcg tablet (Classic ) albuterol sulfate 90 mcg/actuation 2 inh inhalation Q4H PRN shortness 01/10/25 breath activated powder inhaler of breath #1 ea Allergies Allergy/AdvReac Type Severity Reaction Status Date / Time diphenhydramine (From Allergy TREMORS Verified 01/21/25 12:44 Benadryl) ED Exam General Limitations: Present no limitations Course Vital Signs Vital signs: Vital Signs Temperature 98.5 F 01/21/25 12:51 Pulse Rate 73 01/21/25 12:51 Respiratory Rate 18 01/21/25 12:51 Blood Pressure 120/82 01/21/25 12:51 Pulse Oximetry (%) 99 01/21/25 12:51 Oxygen Delivery Method Room Air 01/21/25 12:51 Discharge Plan Prescriptions/Referrals Prescriptions/Med Rec: No Action Classic 28 mg iron- 800 mcg tablet 1 tab PO QDAY 90 Days Qty: 90 4RF albuterol sulfate 90 mcg/actuation aerosol powdr breath activated 2 inh inhalation Q4H PRN (Reason: shortness of breath) Qty: 1 0RF Patient/Caregiver Discharge Instructions Print Language: Zambian
--- NOTE | 2025-01-21 12:57 | EKG_ITS ---
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
--- NOTE | 2025-01-21 13:00 | PD.EDRME ---
Rapid Medical Screening Exam RME Arrival date/time: 01/21/25 12:41 44-year-old female with a history of anxiety presents to the emergency room with a chief complaint of shortness of breath and palpitations x 1 day I have greeted and performed a focused initial assessment of this patient. A comprehensive ED assessment and evaluation of the patient, analysis of all test results, and completion of the medical decision making process will be conducted by additional ED providers. Chief Complaint: Shortness of Breath/Dyspnea Time Seen by Provider: 01/21/25 12:52 Vital signs: Vital Signs Temperature 98.5 F 01/21/25 12:51 Pulse Rate 73 01/21/25 12:51 Respiratory Rate 18 01/21/25 12:51 Blood Pressure 120/82 01/21/25 12:51 Pulse Oximetry (%) 99 01/21/25 12:51 Oxygen Delivery Method Room Air 01/21/25 12:51 Vital signs reviewed by provider: Yes
[2025-01-21 14:25] LABS: Basophils # (Auto) 0.0 Thou/mm3 (0.0-0.2); Basophils % (Auto) 0 % (0-2.5); Eosinophils # (Auto) 0.0 Thou/mm3 (0.0-0.5); Eosinophils % (Auto) 0 % (0-10); Hematocrit 39.7 % (36.0-46.0); Hemoglobin 12.8 g/dL (12.0-16.0); Immature Granulocytes Auto 0.02 Thou/mm3 (0.00-0.00); Lymphocytes # (Auto) 1.6 Thou/mm3 (1.0-4.8); Lymphocytes % (Auto) 21 % (10-50); Mean Corpuscular HGB Conc 32.2 g/dl (31.0-37.0); Mean Corpuscular Hemoglobin 28.4 pg (25.0-35.0); Mean Corpuscular Volume 88 fL (80-100); Monocytes # (Auto) 0.7 Thou/mm3 (0.0-0.8); Monocytes % (Auto) 8 % (0-12); Neutrophils # (Auto) 5.6 Thou/mm3 (1.8-7.7); Neutrophils % (Auto) 70 % (37-80); Nucleated Red Blood Cell # 0.00 Thou/mm3 (0.00-0.00); Nucleated Red Blood Cell % 0 /100 WBC (0); Platelet Count 237 Thou/mm3 (140-440); RDW Standard Deviation 39.3 fL (36.4-46.3); Red Blood Count 4.50 Miln/mm3 (4.00-5.20); White Blood Count 7.9 Thou/mm3 (3.6-11.0)
[2025-01-21 14:34] LABS: Collection Type, Urine Clean Catch
[2025-01-21 14:38] LABS: INR 1.1 (0.9-1.3); Partial Thromboplastin Time 26.4 Seconds (22.0-36.0); Prothrombin Time 11.6 Seconds (9.0-12.2)
[2025-01-21 14:42] LABS: B-Type Natriuretic Peptide < 20 pg/mL (0-100)
[2025-01-21 14:44] LABS: Alanine Aminotransferase 14 U/L (10-49); Albumin, Serum 4.4 gm/dL (3.5-5.0); Albumin/Globulin Ratio 1.7 (1.2-2.2); Alkaline Phosphatase 43 U/L (46-116); Anion Gap 10 (7-16); Aspartate Amino Transferase 17 U/L (0-34); BUN/Creatinine Ratio 12 Ratio (12-20); Bilirubin,Total 0.9 mg/dL (0.3-1.2); Blood Urea Nitrogen 7 mg/dL (9-23); Calcium 9.9 mg/dL (8.3-10.6); Calcium (Corrected) 9.9 mg/dL (8.5-10.1); Carbon Dioxide 25.2 mMol/L (20.0-31.0); Chloride 108 mMol/L (98-107); Creatinine (Component) 0.6 mg/dL (0.6-1.3); Estimated Creatinine Clearance 101.0 mL/min (>60); Globulin 2.6 gm/dL (2.3-3.5); Glucose 96 mg/dL (74-106); Magnesium 2.0 mg/dL (1.6-2.6); Osmolality,Calculated 282 (275-295); Potassium 3.9 mMol/L (3.4-5.1); Sodium 143 mMol/L (136-145); Total Protein 7.0 gm/dL (5.7-8.2); Troponin I < 0.002 ng/mL (0.0-0.045); eGFR > 60 See Note
[2025-01-21 14:48] LABS: Amphetamine/Methamp Scrn,U Negative (Negative); Barbiturate Screen,Urine Negative (Negative); Benzodiazepines Screen,Urine Negative (Negative); Benzoylecgonine Screen, Ur Negative (Negative); Fentanyl Screen,Urine Negative (Negative); Opiate Screen,Urine Negative (Negative); THC Screen,Urine Negative (Negative)
[2025-01-21 14:53] LABS: Bacteria,Urine 1+; Bilirubin,Urine Negative (Negative); Blood,Urine 2+ (Negative); Color,Urine Lt-Yellow (Lt Yel-Yel); Culture Indicated,Urine Contaminated; Glucose, Urine Negative (Negative); Ketones,Urine Negative (Negative); Leukocyte Esterase,Urine Positive (Negative); Nitrite,Urine Positive (Negative); PH,Urine 7.5 (5.0-7.0); Protein,Urine Negative (Neg - Trace); RBC,Urine 6 /hpf (0-3); Specific Gravity,Urine 1.012 (1.001-1.035); Squamous Epithelial Cell,Urine 14 /hpf (0-5); Urobilinogen,Urine Negative mg/dL (0.0-1.0); WBC,Urine 7 /hpf (0-5)
[2025-01-21 15:33] LABS: Clarity,Urine Hazy (Clear/Hazy)
--- NOTE | 2025-01-21 16:37 | EDNOTE_ITS ---
ED SOB =RME/HPI General Chief Complaint: Shortness of Breath/Dyspnea Stated Complaint: ANXIETY, SHORTNESS OF BREATH SINCE THIS AM Time Seen by Provider: 01/21/25 12:52 Arrival date/time: 01/21/25 12:41 RME / HPI RME / HPI Narrative: 44-year-old female with a history of anxiety presents to the emergency room with a chief complaint of shortness of breath and palpitations x 1 day. Also complaining of jittery, headache, carpopedal spasm, severity moderate. Denies any stressor in life lately. Denies any other complaints denies any homicidal or suicidal ideation. Related Data Previous Rx's ?Medication ?Instructions ?Recorded vits no.126-ferrous fum 1 tab PO QDAY 90 days #90 tabs 11/23/24 28 mg iron-folic acid 800 mcg tablet (Classic ) albuterol sulfate 90 mcg/actuation 2 inh inhalation Q4 H PRN shortness 01/10/25 breath activated powder inhaler of breath #1 ea lorazepam 0.5 mg tablet (Ativan) 0.5 mg PO BID PRN anx iety #20 tabs 01/21/25 Allergies Allergy/AdvReac Type Severity Reaction Status Date / Time diphenhydramine (From Allergy TREMORS Verified 01/21/25 12:44 Benadryl) Review of Systems Review of Systems Narrative Review of Systems: Review of system reviewed and within normal limits except mentioned in HPI ED Exam Narrative Physical exam: VITAL SIGNS: Reviewed. GENERAL APPEARANCE: Alert and interactive, follows commands, no acute distress, anxious HEAD AND FACE: Non-traumatic. ENT: PERRL, pink conjunctivitis, eyelid no trauma, Mucous membrane moist. NECK: Supple, nontender, no nuchal rigidity. CHEST: No tenderness, no crepitus, no paradoxical movement, no retractions. LUNGS: Clear, well ventilated, symmetric, no rales, no wheezing, no ronchi, no stridor, good breath sounds bilaterally. HEART: Regular rate, regular rhythm, no murmur, no gallops. ABDOMEN: Soft, positive bowel sounds, nondistended, no guarding, nontender, no rebound, no masses, RECTAL: Deferred. GENITAL: Deferred. NEUROLOGICAL: Gross motor function intact sensory function intact, Appropriate for age. MUSCULOSKELETAL: low back nontender, full range of motion. EXTREMITIES: Nontender, full range of motion. SKIN: Color pink, dry, no rash, no lacerations, no abrasions, no contusions. LYMPHATICS: Deferred. Course Quality Measures none Orders Category Date Time Status EKG (ED ONLY) *Do not use* NOW Care 01/21/25 12:57 Completed EKG (ED Only) Stat Exams 01/21/25 12:57 Draft B-Type Natriuretic Peptide Stat Lab 01/21/25 14:12 Completed CBC Stat Lab 01/21/25 14:12 Completed Comprehensive Metabolic Panel Stat Lab 01/21/25 14:12 Completed Drug Screen,Urine Stat Lab 01/21/25 14:30 Completed Magnesium Stat Lab 01/21/25 14:12 Completed Partial Thromboplastin Time Stat Lab 01/21/25 14:12 Completed Prothrombin Time with INR Stat Lab 01/21/25 14:12 Completed Troponin I Stat Lab 01/21/25 14:12 Completed Urinalysis, C/S if Indicated Stat Lab 01/21/25 14:30 Completed ALPRazoLAM [Xanax] Med 01/21/25 13:20 Discontinued 0.5 mg PO X1 ONE Vital Signs Vital signs: Vital Signs Temperature 98.5 F 01/21/25 12:51 Pulse Rate 73 01/21/25 12:51 Respiratory Rate 18 01/21/25 12:51 Blood Pressure 120/82 01/21/25 12:51 Pulse Oximetry (%) 99 01/21/25 12:51 Oxygen Delivery Method Room Air 01/21/25 12:51 Shortness of Breath / Dyspnea MDM Narrative MDM Narrative:: 44-year-old female with a history of anxiety presents to the emergency room with a chief complaint of shortness of breath and palpitations x 1 day. Also complaining of jittery, headache, carpopedal spasm, severity moderate. Denies any stressor in life lately. Denies any other complaints denies any homicidal or suicidal ideation. Patient EKG shows sinus rhythm, ventricular to 77 bpm, no ST segment elevation depression noted. Patient's workup today all came back normal including normal troponin. Patient refused chest x-ray patient told me that she had ER visit several weeks ago and they did x-ray twice and they are all normal. She refused today. Patient was given Ativan with significant improvement of symptoms. Patient is having anxiety like symptoms. Her urinalysis showed contamination. I will send her home on Ativan however I told her that it is a medication that make your body dependent on it so she needs to take it only as needed. Patient agrees with the plan. Patient data External records reviewed:: None Clinical information provided by:: patient Social determinants that could affect healthcare access:: none Patient has the following chronic illnesses:: None How is presenting disease/condition affected by chronic disease/condition?: no chronic disease Evaluation data The following diagnostics were reviewed and interpreted by me:: lab results, radiology exam(s) and EKG tracing(s) Lab and/or radiology exams considered but not ordered:: None Interpretation Summary: See results MDM Medications / Prescriptions Medications or Prescriptions considered but not ordered:: None Medication administrations:: Medication Administration History Discontinued Medications Alprazolam (Alprazolam 0.25 Mg Tablet) 0.5 mg PO X1 ONE Stop: 01/21/25 13:21 Last Admin: 01/21/25 13:30 Dose: 0.5 mg Documented By: Ativan Consultations Consultation(s) initiated? (list below): No Diagnosis Shortness of Breath Differential Diagnosis: other (Anxiety, palpitation, carpopedal spasm) Most likely diagnosis given after review of the tests above:: anxiety Admission Indicated Admission indicated?: not indicated Admission Request Was there a request for admission?: No Disposition Plan Disposition Plan: Discharge Discharge Attestation Discharge Attestation: The patient and all family members were given an opportunity to ask questions and understood the discharge instructions. Discharge instructions specifically effects, indications for sooner follow up or return to the emergency department, and the expected course of current diagnosis. Patient condition: Stable Discharge Plan Plan Patient Disposition: HOME (Self Care) Discharge Disposition comment: Stable Prescriptions/Referrals Prescriptions/Med Rec: New lorazepam [Ativan] 0.5 mg tablet 0.5 mg PO BID PRN (Reason: anxiety) Qty: 20 0RF No Action Classic 28 mg iron- 800 mcg tablet 1 tab PO QDAY 90 Days Qty: 90 4RF albuterol sulfate 90 mcg/actuation aerosol powdr breath activated 2 inh inhalation Q4H PRN (Reason: shortness of breath) Qty: 1 0RF Referrals: Spencer Serna MD [Primary Care Provider, Family Practice] - In 1 week Problem List Clinical Impression: Anxiety Patient/Caregiver Discharge Instructions Discharge Activity: activity as tolerated Education Materials: ED Anxiety Reaction Additional Instructions: Thank you for the opportunity for serving you today. You are stable for discharged . You are advised to: Follow-up with your PCP in 1 to 2 days Return to ED for worsening of symptoms Increase oral fluids Take medication as prescribed, Ativan, take your medication as needed only, there is a tendency that your be dependent on Ativan so try to only use it as needed Print Language: Amharic Stand Alone Forms: Karly Award Info., Patient Portal Info Letter PA/ROSSY Supervising Physician PA/ROSSY Supervising Physician: MD Mode
== END 2025-01-21 16:47 | disposition home or self-care (01) ==
PROVIDERS: Nurse Practitioner Family; Emergency Provider Family Medicine; PCP Family Medicine
DX: F41.9 Anxiety disorder, unspecified (principal)
CPT/HCPCS: 36415; 80053; 80307; 81001; 83735; 83880; 84484; 85025; 85610; 85730; 93005; 99283; A9270